=== PATIENT | male | born 1960 | race Asian ===

== ENCOUNTER 2022-05-16 15:04 | Emergency (ER) | payer OTHER ==
[~2022-05-16] VITALS: Ht 170.2 cm; Wt 61.2 kg
--- NOTE | 2022-05-16 15:10 | NUR ---
DR CASILLAS AT BEDSIDE
[2022-05-16] MEDS ORDERED: HYDROCODONE/APAP 5/325MG TABLET PO ONE (15:30)
[2022-05-16] MEDS ORDERED: HYDROCODONE/APAP 5/325MG TABLET ONE (15:53)
[2022-05-16] MEDS ORDERED: IBUP-1957 PO (18:07)
[2022-05-16] MEDS ORDERED: ACETAMINOPHEN 325 MG TABLET ONE (18:45)
--- NOTE | 2022-05-16 18:45 | NUR ---
SPLINT PLACED BY EMT
[2022-05-16] MEDS ORDERED: ACETAMINOPHEN 325 MG TABLET PO ONE (19:00)
--- NOTE | 2022-05-16 19:11 | NUR ---
Patient discharged to home in stable condition. Written and verbal after care instructions given. Patient verbalizes understanding of instruction.
[2022-05-16 19:12] VITALS: BP 121/81
--- NOTE | 2022-05-16 19:12 | NUR ---
Patient discharged to home in stable condition. Written and verbal after care instructions given. Patient verbalizes understanding of instruction.
== END 2022-05-16 19:12 | disposition home or self-care (01) ==
LOC: ER 15:06
DX: S40.012A Contusion of left shoulder, initial encounter (principal); Z79.899 Other long term (current) drug therapy; V89.2XXA Person injured in unspecified motor-vehicle accident, traffic, initial encounter; Y93.89 Activity, other specified; Y92.89 Other specified places as the place of occurrence of the external cause; Y99.8 Other external cause status
CPT/HCPCS: 70450-TC; 72125-TC; 73030-TC